=== PATIENT | female | born 1980 | race Caucasian/White ===

== ENCOUNTER 2017-02-21 08:32 | Emergency (ER) | payer SELFPAY ==
[2017-02-21 09:04] VITALS: BP 154/102
[2017-02-21] MEDS ORDERED: Ibuprofen TAB* 600 MG PO ONE (09:48)
--- NOTE | 2017-02-21 11:22 | RAD ---
HISTORY: Trauma COMPARISONS: January 02, 2015 TECHNIQUE: Multiple contiguous axial CT scans were obtained of the head without intravenous contrast. FINDINGS: HEMORRHAGE/INFARCT: There is no hemorrhage or acute infarct. MASSES/SHIFT: There is no mass or shift. EXTRA-AXIAL SPACES: There are no extra-axial fluid collections. SULCI AND VENTRICLES: The sulci and ventricles are normal in size and position for the patient's stated age. CEREBRUM: There are no focal parenchymal abnormalities. BRAINSTEM: There are no focal parenchymal abnormalities. CEREBELLUM: There are no focal parenchymal abnormalities. VESSELS: The vessels are grossly normal. PARANASAL SINUSES: The paranasal sinuses are clear. ORBITS: The orbits are unremarkable. BONES AND SOFT TISSUE: No bone or soft tissue abnormalities are noted. OTHER: None IMPRESSION: NO ACUTE INTRACRANIAL PATHOLOGY.
--- NOTE | 2017-02-21 11:24 | RAD ---
HISTORY: Right ankle and right foot trauma COMPARISONS: None VIEWS: 6, Frontal, lateral, and oblique views of the right ankle and of the right foot FINDINGS: BONE DENSITY: Normal. BONES: There is possible nondisplaced fracture of the proximal phalanx of the fifth digit at the PIP joint. JOINTS: There is no arthropathy. ALIGNMENT: There is no dislocation. SOFT TISSUES: Unremarkable. OTHER FINDINGS: None. IMPRESSION: 1. POSSIBLE NONDISPLACED FRACTURE OF THE PROXIMAL PHALANX OF THE FIFTH DIGIT AT THE PIP JOINT. RECOMMEND CORRELATION WITH SITE OF PAIN. 2. NO ACUTE OSSEOUS INJURY TO THE ANKLE
[2017-02-21] MEDS ORDERED: Ibuprofen PED LIQ* 100 MG/5 ML UDC PO ONE (11:41)
[2017-02-21] MEDS ORDERED: Acetaminophen TAB* 325 MG PO ONE (11:41)
[2017-02-21] MEDS ORDERED: Lidocaine 2% PF* 5 ML VIAL ONE (11:43)
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
== END 2017-02-21 12:49 | disposition home or self-care (01) ==
LOC: UCEAST 08:32
DX: S90.414A Abrasion, right lesser toe(s), initial encounter (principal); W18.39XA Other fall on same level, initial encounter; Y93.9 Activity, unspecified; Y99.9 Unspecified external cause status; S06.891A Other specified intracranial injury with loss of consciousness of 30 minutes or less, initial encounter
CPT/HCPCS: 70450; 84702; 99213; A9270-GY; G0463

== ENCOUNTER 2017-09-08 13:45 | Emergency (ER) | payer SELFPAY ==
[2017-09-08 14:13] VITALS: BP 136/82
--- NOTE | 2017-09-08 14:44 | UC ---
Seizure HPI - HPI Summary HPI Summary: 37 year old female with past medical history of seizures presents with complains of witnessed seizure. - History Of Current Complaint Chief Complaint: UCSeizure Stated Complaint: SEIZURE Time Seen by Provider: 09/08/17 14:43 Hx Obtained From: Patient Hx Last Menstrual Period: 08/11/17 Onset/Duration: Sudden Onset Severity Of Seizure: Self-Limited Location Of Seizure: All Extremities Aggravating Factor(s): Nothing Alleviating Factor(s): Nothing - Allergies/Home Medications Allergies/Adverse Reactions: Allergies Allergy/AdvReac Type Severity Reaction Status Date / Time Alcohol Allergy Severe hives/swell Verified 09/08/17 14:06 ing Morphine Allergy Severe RASH/ITCHIN Verified 09/08/17 14:06 G/SWELLING Tramadol [From Ultram] Allergy Severe ?SEIZURE Verified 09/08/17 14:06 Codeine Allergy RASH/ITCHIN Verified 09/08/17 14:06 G/SWELLING Oxycodone AdvReac Severe "FEELS Verified 09/08/17 14:06 WEIRD" Nyquil PM Allergy See Comment Uncoded 09/08/17 14:06 sedative drugs Allergy See Comment Uncoded 09/08/17 14:06 Home Medications: Home Medications NK [No Home Medications Reported] 09/08/17 [History Confirmed 09/08/17] PMH/Surg Hx/FS Hx/Imm Hx Previously Healthy: Yes Other History Of: Negative For: HIV, Hepatitis B, Hepatitis C, Anticoagulant Therapy - Surgical History Surgical History: Yes Surgery Procedure, Year, and Place: jaw repair (after fracture) x3, 2011 - Family History Known Family History: Positive: None Negative: Hypertension, Diabetes - Social History Alcohol Use: Occasionally Alcohol Amount: 1-2 glasses of wine last night Substance Use Type: Marijuana Smoking Status (MU): Current Some Day Smoker Type: Cigarettes Amount Used/How Often: 1 PACK/MONTH Length of Time of Smoking/Using Tobacco: 20 years Have You Smoked in the Last Year: Yes Household Exposure Type: Cigarettes - Immunization History Most Recent Influenza Vaccination: 5946-2741 season Most Recent Tetanus Shot: within last 5 yrs, date unknown Most Recent Pneumonia Vaccination: never Review of Systems Constitutional: Negative Skin: Negative Eyes: Negative ENT: Negative Respiratory: Negative Cardiovascular: Negative Gastrointestinal: Negative Genitourinary: Negative Motor: Negative Neurovascular: Negative Musculoskeletal: Negative Neurological: Headache Psychological: Negative All Other Systems Reviewed And Are Negative: Yes Physical Exam Triage Information Reviewed: Yes Vital Signs: Initial Vital Signs Temp 37.2 C 09/08/17 14:07 Pulse 82 09/08/17 14:07 Resp 17 09/08/17 14:07 BP 136/82 09/08/17 14:07 Pulse Ox 99 09/08/17 14:07 Vital Signs Reviewed: Yes Eye Exam: Normal ENT Exam: Normal Dental Exam: Normal Neck exam: Normal Neck: Positive: 1 Respiratory Exam: Normal Cardiovascular Exam: Normal Abdominal Exam: Normal Musculoskeletal Exam: Normal Neurological Exam: Normal Psychological Exam: Normal Skin Exam: Normal Seizure Course/Dx - Differential Dx/Diagnosis Provider Diagnoses: post seizure. headache Discharge - Discharge Plan Condition: Stable Disposition: OTHER Discharge Disposition Comment: patient suggested to go to the er Patient Education Materials: Recurrent Seizures in Adults (ED) Referrals: Benito Taylor MD [Primary Care Provider] - Additional Instructions: patient suggested to go to the er for seizures
== END 2017-09-08 14:59 ==
LOC: UCEAST 13:45
DX: R56.9 Unspecified convulsions (principal); R51 Headache; Z88.4 Allergy status to anesthetic agent; Z88.5 Allergy status to narcotic agent; Z72.0 Tobacco use
CPT/HCPCS: 99212; G0463